=== PATIENT | male | born 1995 | race Caucasian/White ===

== ENCOUNTER 2021-04-03 23:42 | Emergency (ER) | payer OTHER, SELFPAY ==
[2021-04-03 23:44] VITALS: BP 156/74; PULSE 110; RESP 18; O2SAT 96; BMI 25.7
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
[2021-04-04] MEDS: Diphth,Pertus(ACell),Tet Adult 0.5 ML SYRINGE IM (01:20)
[2021-04-04] MEDS: Lidocaine HCl 2 % 20 ML VIAL INFILTRATI (01:21)
[2021-04-04] MEDS: Amoxicillin/Potassium Clav 875 MG TABLET PO (02:29)
[2021-04-04] MEDS: Bacitracin Oint 14 GM TUBE 1 APPL TOPICAL (02:30)
== END 2021-04-04 02:37 | disposition home or self-care (01) ==
PROVIDERS: Emergency Provider Student in an Organized Health Care Education/Training Program
DX: S01.81XA Laceration without foreign body of other part of head, initial encounter (principal); S01.512A Laceration without foreign body of oral cavity, initial encounter; Y04.8XXA Assault by other bodily force, initial encounter; Y93.9 Activity, unspecified; Y92.9 Unspecified place or not applicable; Y99.9 Unspecified external cause status
CPT/HCPCS: 12052; 90471; 90715; 99283; 99284